=== PATIENT | female | born 2000 | race Caucasian/White ===

== ENCOUNTER 2025-03-30 19:25 | Emergency (ER) | payer OTHER, SELFPAY ==
[2025-03-30 19:30] VITALS: BP 154/82; PULSE 86; TEMP 36.6; O2SAT 99; BMI 26.7
[2025-03-30 20:18] LABS: Bilirubin Urine NEGATIVE (NEGATIVE); Blood Urine MODERATE (NEGATIVE); Clarity Urine CLEAR (CLEAR); Color Urine LT. YELLOW (YELLOW); Glucose Urine UA NEGATIVE (NEGATIVE); Ketones Urine TRACE mg/dL (NEGATIVE); Leukocyte Esterase Urine MODERATE (NEGATIVE); Nitrite Urine NEGATIVE (NEGATIVE); Protein Urine NEGATIVE (NEG/TRACE); Specific Gravity Urine 1.015 (1.005-1.025); Urobilinogen Urine 0.2 EU/dL (0.2-1.0); pH Urine 6.5 (5.0-9.0)
[2025-03-30 20:19] LABS: HCG Qualitative Urine* POSITIVE (NEGATIVE); Internal Control Within Normal Limits
[2025-03-30 20:25] LABS: Bacteria Urine LARGE #/HPF (NONE SEEN); Cast Seen? NONE SEEN #/LPF (NONE SEEN); Crystals Seen? None Seen #/HPF (None Seen); Mucus Urine SMALL (NONE SEEN); RBC Urine NONE SEEN #/HPF (0-2); Squamous Epithelial Cell Urine MANY #/LPF (NONE/RARE); Urine Culture Indicated YES-FRMC
[2025-03-30 21:18] LABS: HCG Quantitative 52141 mIU/mL
[2025-03-30] MEDS: RHO(D) IMMUNE GLOBULIN 1,500 UNIT SYRINGE 1500 UNIT IM (22:17)
--- NOTE | 2025-03-30 22:51 | ED.PREGNANC1 ---
HPI - General Chief complaint: Vaginal Bleeding Stated complaint: 6 WKS PG, BLOOD DISCHARGE Time Seen by Provider: 03/30/25 19:42 Source: patient Mode of arrival: walk-in Limitations: no limitations History of Present Illness HPI Narrative: The patient is a blayne 24-year-old female presenting to the emergency department with her significant other secondary to vaginal bleeding. The vaginal bleeding was noticed about 2-1/2 hours prior to arrival. The patient stated that she noticed some blood on her panty liner. She wiped however and saw no additional blood. She states that she is a G2, P0. She is 6 weeks . She has not had a confirmatory ultrasound yet. The second week in March she does have an ultrasound scheduled. The patient had a miscarriage at 8 weeks on September 03, 2024. The patient states that there has been no pain at this time. She is denying any dysuria, hematuria, urgency or frequency. The patient states that she contacted her L&D nurse for Dr. Paul and was referred to the hospital for further evaluation and care. Patient : Yes Number of Weeks : 6 Related Data : 2 Para: 0 Home Medications ?Medication ?Instructions ?Recorded ?Confirmed DAILY 03/30/25 Allergies Allergy/AdvReac Type Severity Reaction Status Date / Time No Known Drug Allergies Allergy Verified 03/30/25 19:34 Review of Systems ROS Narrative 10 Systems were reviewed, and unless noted in the HPI, all other systems are reviewed, unremarkable, or noncontributory. PFSH PFSH Social History Little interest or pleasure in doing things: not at all Feeling down, depressed, or hopeless: not at all Exam Narrative Exam Narrative: Prior to examining the patient, I have washed with hospital approved and provided Antiseptic Hand Manufacturing Quality Inspector and have also applied gloves.? Prior to touching the patient, I asked for consent to examine the patient.? General: Alert and oriented, well nourished, mild distress. Eye: PERRL, EOMI, normal conjunctiva. HENT: Normocephalic, normal hearing, moist oral mucosa, no scleral icterus Lungs: Clear to auscultation and percussion, non-labored respiration. No rhonchi, rales, wheezing Heart: Normal rate, regular rhythm, no murmur, gallop or edema. Abdomen: Soft, non-tender, non-distended, normal bowel sounds, no masses. Musculoskeletal: Normal range of motion and strength, no tenderness or swelling. Skin: Skin is warm, dry and pink, no rashes or lesions. Neurologic: Awake, alert, and oriented X3, CN II-XII intact. Psychiatric: Cooperative, appropriate mood and affect.? Following the conclusion of the examination, I have washed my hands thoroughly after removing examination gloves. Constitutional Vital Signs, click to edit/add: Last Vital Signs Temp 98 F 03/30/25 19:30 Pulse 86 03/30/25 19:30 Resp 16 03/30/25 19:30 BP 154/82 H 03/30/25 19:30 Pulse Ox 99 03/30/25 19:30 O2 Del Method Room Air 03/30/25 19:30 Course Course Hospital Course: Patient is a very pleasant young lady presenting for vaginal spotting that occurred 1 time today. She is not having any back pain, pelvic pain, vaginal discomfort. No urinary symptoms. The patient does have known a negative blood type. She has had RhoGAM in the past when she had her last spontaneous miscarriage. The patient will receive a quantitative hCG. I provided a bedside emergency department ultrasound to confirm the IUP. Reevaluation(s) Reevaluation #1: Patient still remains pain-free. She is aware of her laboratories and the need to follow-up with her primary care physician. Time: 22:55 Vital Signs Vital signs: Vital Signs Temperature 98 F 03/30/25 19:30 Pulse Rate 86 03/30/25 19:30 Respiratory Rate 16 03/30/25 19:30 Blood Pressure 154/82 H 03/30/25 19:30 Pulse Oximetry 99 03/30/25 19:30 Oxygen Delivery Method Room Air 03/30/25 19:30 Temperature 98 F 03/30/25 19:30 Pulse Rate 86 03/30/25 19:30 Respiratory Rate 16 03/30/25 19:30 Blood Pressure 154/82 H 03/30/25 19:30 Pulse Oximetry 99 03/30/25 19:30 Oxygen Delivery Method Room Air 03/30/25 19:30 MDM - OB/Uterine Contractions MDM Narrative Medical decision making narrative: In summary, the patient is a 24-year-old female who presented to the emergency department for 1 episode of vaginal spotting. We discussed some of the differentials which could be spontaneous miscarriage, implantation bleeding, or urinary tract infection. She does not have any evidence of a urinary tract infection. I do see an intrauterine mass. I believe the patient has a intrauterine . I do not have the capability to do a transvaginal ultrasound this evening they would further delineate patient's heart tones and some more descriptive information. Medical Records Attestation: I reviewed the patient's medical records. Lab Data Attestation: I reviewed the patient's lab results. Labs: Lab Results 03/30/25 03/30/25 03/30/25 Range/Units 20:10 20:23 21:08 HCG, Quant 90269 mIU/mL Urine Color Lt. yellow (YELLOW) Urine Clarity Clear (CLEAR) Urine pH 6.5 (5.0-9.0) Ur Specific Vincent 1.015 (1.005-1.025) Urine Protein Negative (NEG/TRACE) mg/dL Urine Glucose (UA) Negative (NEGATIVE) mg/dL Urine Ketones Trace A (NEGATIVE) mg/dL Urine Occult Blood Moderate A (NEGATIVE) Urine Nitrite Negative (NEGATIVE) Urine Bilirubin Negative (NEGATIVE) Urine Urobilinogen 0.2 (0.2-1.0) EU/dL Ur Leukocyte Esterase Moderate A (NEGATIVE) Urine RBC None seen (0-2) #/HPF Urine WBC 5-10 A (NONE SEEN) #/HPF Ur Squamous Epith Cells Many A (NONE/RARE) #/LPF Urine Crystals None seen (None Seen) #/HPF Urine Bacteria Large A (NONE SEEN) #/HPF Urine Casts None seen (NONE SEEN) #/LPF Urine Mucus Small A (NONE SEEN) Ur Culture Indicated? Yes-[facility] [place] Urine HCG, Qual Positive A (NEGATIVE) Blood Type A Negative Antibody Screen Negative Discharge Plan Discharge Chief Complaint: Vaginal Bleeding Clinical Impression: Vaginal bleeding affecting early Patient Disposition: Home, Self-Care Time of Disposition Decision: 22:58 Condition: Good Mode of Transportation: Private Vehicle Prescriptions / Home Meds: No Action DAILY Print Language: Maori Instructions: Non-Threatening First Trimester Vaginal Bleed (ED) Additional Instructions: Please make sure you follow-up with your firmware engineer on Tuesday let them know you are in the emergency department. They may want to move your ultrasound forward. If you have any further vaginal bleeding then I would want you to come back to the emergency department for further evaluation and treatment. Please tell your practitioner that you did receive RhoGAM shot while in the emergency department. Thank you for trusting me with your care today. Referrals: Physician,Non-Staff, MD [Primary Care Provider] - 1 week Discharge Date/Time: 03/30/25 23:05 Procedures ED US Ultrasound Pelvic Ultrasound Pelvic exam #1: Status: positive HCG Quantitative: 43830 Anatomical areas examined: uterus Indications: evalutation for intrauterine (Double ring sign appreciated.) Exam type: limited transabdominal ultrasound Impression: IUP without confirmed heartbeat
== END 2025-03-30 23:05 | disposition home or self-care (01) ==
PROVIDERS: Physician Assistant; Emergency Provider Emergency Medicine
DX: O20.9 Hemorrhage in early pregnancy, unspecified (principal); Z3A.01 Less than 8 weeks gestation of pregnancy; O26.891 Other specified pregnancy related conditions, first trimester; Z67.91 Unspecified blood type, Rh negative
CPT/HCPCS: 36415; 81001; 84702; 84703; 86850; 86900; 86901; 87086; 96372; 99284; J2791